=== PATIENT | male | born 1965 | race Hispanic/Latino ===

== ENCOUNTER 2019-05-03 08:24 | Outpatient (CLI) | payer OTHER ==
--- NOTE | 2019-05-03 11:06 | ULT ---
ULTRASOUND ABDOMEN COMPLETE: DATE: 05/03/19 INDICATION: Hepatosplenomegaly. No prior comparison. TECHNIQUE: Olsen-scale ultrasound evaluation of the liver, gallbladder, spleen, pancreas, common bile duct, kidne ys, abdominal aorta, and inferior vena cava (IVC). FINDINGS: The hepatic length is 17.0 cm and the splenic length is 11.8 cm. No focal hepatic or splenic lesion i dentified. There is increased echogenicity of the liver. No acute gallbladder pathology. There are lo w level echoes of the gallbladder indicating sludge and/or gravel-like cholelithiasis. No shadowing c holelithiasis. Common duct is normal in caliber at 3-4 mm. No ascites. IMPRESSION: 1. Borderline sized liver, 17.0 cm in length. Increased echogenicity of the liver which can be seen in the setting of fatty infiltration. Correlate with liver function enzymes. 2. No evidence of splenomegaly. 3. Low level echoes of the gallbladder which may be on the basis of mild sludge, and/or gravel-like cholelithiasis. POS: [facility]
== END 2019-05-03 08:25 | disposition home or self-care (01) ==
LOC: ULT 08:24
PROVIDERS: ATTEND Internal Medicine Hematology & Oncology
DX: R16.2 Hepatomegaly with splenomegaly, not elsewhere classified (principal); K76.0 Fatty (change of) liver, not elsewhere classified
CPT/HCPCS: 76700

== ENCOUNTER 2023-06-02 18:22 | Outpatient (CLI) | payer OTHER | END 2023-06-02 18:23 | disposition home or self-care (01) | LOC: RAD 18:22 | PROVIDERS: ATTEND Family Medicine | DX: S29.9XXA Unspecified injury of thorax, initial encounter (principal); S22.31XA Fracture of one rib, right side, initial encounter for closed fracture ==